=== PATIENT | female | born 1940 | race Two or more races ===

== ENCOUNTER 2018-04-28 13:24 | Emergency (ER) | payer MEDICARE ==
[~2018-04-28] VITALS: Ht 154.9 cm; Wt 44.0 kg
--- NOTE | 2018-04-28 14:16 | NUR ---
MSE COMPLETED, PT D/C'D HOME, ACI/RX X3 GIVEN. PT AMBULATED W/O DIFF/TOOK ALL BELONGINGS.
[2018-04-28 14:18] VITALS: BP 111/63
== END 2018-04-28 14:20 | disposition home or self-care (01) ==
LOC: ER 13:29
DX: L25.9 Unspecified contact dermatitis, unspecified cause (principal)
CPT/HCPCS: A4663

== ENCOUNTER 2024-05-29 11:04 | Emergency (ER) | payer MEDICARE, BC ==
[~2024-05-29] VITALS: Ht 154.9 cm; Wt 43.5 kg
[2024-05-29] MEDS ORDERED: ACET1TAB23 PO (12:07)
[2024-05-29] MEDS ORDERED: LIDO30AD10 TP (12:07)
[2024-05-29 12:27] VITALS: BP 176/72; O2SAT 97
== END 2024-05-29 12:30 | disposition home or self-care (01) ==
LOC: ER 11:04
DX: B02.29 Other postherpetic nervous system involvement (principal); Z79.899 Other long term (current) drug therapy
CPT/HCPCS: A4606; A4663